=== PATIENT | female | born 1930 | race Caucasian/White ===

== ENCOUNTER 2018-04-04 14:58 | Inpatient (IN) | payer MEDICARE, MEDICAID ==
[~2018-04-04] VITALS: Ht 315 cm; Wt 50.8 kg
[~2018-04-04 14:58] MED LIST: AMLO10TA80 PO; ESOM20CA PO; LEVE500T19 PO; MEGE400O PO; MEMA10TA2 PO; METO25TA6 PO; NEPVIT PO; OYSCO; ROSU40TA PO
[2018-04-04 21:27] LABS: HEMATOCRIT. 29.3 % (36.0-48.0); HEMOGLOBIN. 9.6 g/dL (12.0-16.0); MEAN CORPUSCULAR HEMOGLOBIN 30.7 pg (28.0-32.0); MEAN CORPUSCULAR VOLUME 94.2 fL (81.0-99.0); MEAN PLATELET VOLUME 6.1 fl (7.4-10.4); PLATELET 495 x1000/uL (130-400); RED BLOOD CELL COUNT 3.11 mill/uL (4.2-5.4); RED CELL DISTRIBUTION WIDTH 16.4 % (11.6-14.6)
[2018-04-04 21:33] LABS: CHLORIDE 109 mEq/L (98-107)
[2018-04-04 21:42] LABS: PLATELET ESTIMATE INCREASED
[2018-04-04 22:55] LABS: CLARITY URINE CLOUDY (CLEAR); COLOR URINE YELLOW (YELLOW); KETONES URINE TRACE (NEGATIVE); LEUKOCYTE ESTERASE URINE 2+ (NEGATIVE); NITRITE URINE NEGATIVE (NEGATIVE); OCCULT BLOOD URINE 2+ (NEGATIVE); PH URINE 5.5 (4.5-8.0); PROTEIN URINE 3+ (NEGATIVE); SPECIFIC GRAVITY URINE 1.018 (1.005-1.030)
[2018-04-04] MEDS ORDERED: CEFTRIAXONE 1 G PREMIX 50 ML IV ONE (23:30)
[2018-04-04] MEDS ORDERED: ASPIRIN 81MG TABLET PO ONE (23:30)
[2018-04-05] MEDS ORDERED: MAGNESIUM/ALUMINUM HYDROXIDE/SIMETHICONE 30ML UDC PO PRN (00:30)
[2018-04-05] MEDS ORDERED: HYDROCODONE/ACETAMINOPHEN 5/325MG TABLET PO PRN (00:30)
[2018-04-05] MEDS ORDERED: GUAIFENESIN 200MG/10ML SUGAR FREE UDC PO PRN (00:30)
[2018-04-05] MEDS ORDERED: ACETAMINOPHEN 325MG TABLET PO PRN (00:30)
[2018-04-05] MEDS ORDERED: DOCUSATE SODIUM 100MG CAPSULE PO PRN (00:30)
[2018-04-05] MEDS ORDERED: CLONIDINE 0.1MG TABLET PO PRN (00:30)
[2018-04-05] MEDS ORDERED: ONDANSETRON HCL 4MG/2ML INJ IV PRN (00:30)
[2018-04-05] MEDS ORDERED: LEVOFLOXACIN 500MG PREMIX 100 ML IV NR (00:45)
[2018-04-05] MEDS: DEXT 5%/0.45% NACL 1000ML 1,000 ML IV SCH (02:05)
[2018-04-05 06:33] LABS: CREATINE KINASE 50 IU/L (26-192)
[2018-04-05 06:34] LABS: CREATINE KINASE MB FRACTION 1.1 ng/mL (0.5-3.6)
[2018-04-05 09:00] VITALS: BP 169/64
[2018-04-05 10:00] VITALS: BP 169/64
[2018-04-05] MEDS ORDERED: CITA10SO PO (11:54)
[2018-04-05 12:04] VITALS: BP 152/49
[2018-04-05] MEDS: ENOXAPARIN 30MG/0.3ML SYR SUBCUT SCH (14:21)
[2018-04-05] MEDS: AMLODIPINE 10MG TABLET PO SCH (14:22)
[2018-04-05] MEDS: MEMANTINE HCL 10MG TABLET PO SCH (14:22)
[2018-04-05 15:02] LABS: CREATINE KINASE MB FRACTION 1.6 ng/mL (0.5-3.6)
[2018-04-05 16:10] VITALS: BP 140/43
[2018-04-05 20:00] VITALS: BP 108/38
[2018-04-05] MEDS ORDERED: LEVOFLOXACIN 250MG PREMIX 50 ML IV SCH (21:00)
[2018-04-06 00:08] VITALS: BP 114/46
[2018-04-06] MEDS: DEXT 5%/0.45% NACL 1000ML 1,000 ML IV SCH ×2 (03:53→21:40)
[2018-04-06 06:16] LABS: HEMATOCRIT. 29.7 % (36.0-48.0); HEMOGLOBIN. 9.7 g/dL (12.0-16.0); MEAN CORPUSCULAR HEMOGLOBIN 30.4 pg (28.0-32.0); MEAN CORPUSCULAR VOLUME 93.5 fL (81.0-99.0); MEAN PLATELET VOLUME 6.4 fl (7.4-10.4); PLATELET 509 x1000/uL (130-400); RED BLOOD CELL COUNT 3.18 mill/uL (4.2-5.4); RED CELL DISTRIBUTION WIDTH 16.4 % (11.6-14.6)
[2018-04-06 06:46] LABS: CHLORIDE 110 mEq/L (98-107)
[2018-04-06 06:56] LABS: LDL CHOLESTEROL 68 mg/dL (5-100)
[2018-04-06 06:58] LABS: HDL CHOLESTEROL 43 mg/dL (40-59)
[2018-04-06 08:00] VITALS: BP 111/47
[2018-04-06] MEDS: MEMANTINE HCL 10MG TABLET PO SCH (08:45)
[2018-04-06] MEDS: AMLODIPINE 10MG TABLET PO SCH (08:48)
[2018-04-06 10:36] LABS: PLATELET ESTIMATE INCREASED
[2018-04-06 12:00] VITALS: BP 111/46
[2018-04-06] MEDS: ENOXAPARIN 30MG/0.3ML SYR SUBCUT SCH (13:00)
[2018-04-06 16:00] VITALS: BP 114/45
[2018-04-06 20:00] VITALS: BP 101/47
[2018-04-06] MEDS ORDERED: LEVOFLOXACIN 250MG PREMIX 50 ML IV SCH (21:00)
[2018-04-06] MEDS ORDERED: QUETIAPINE FUMARATE 25MG TABLET PO SCH (21:00)
[2018-04-07] VITALS: BP 99/51
[2018-04-07] MEDS: DEXT 5%/0.45% NACL 1000ML 1,000 ML IV SCH (05:42)
[2018-04-07 06:28] VITALS: BP 112/46
[2018-04-07 08:00] VITALS: BP 115/46
[2018-04-07 08:03] LABS: BASOPHILS % 0.5 % (0.0-2.0); EOSINOPHILS % 0.9 % (0.0-5.0); HEMATOCRIT. 25.1 % (36.0-48.0); HEMOGLOBIN. 8.2 g/dL (12.0-16.0); LYMPHOCYTES % 10.2 % (20.0-50.0); MEAN CORPUSCULAR HEMOGLOBIN 30.3 pg (28.0-32.0); MEAN CORPUSCULAR VOLUME 92.6 fL (81.0-99.0); MEAN PLATELET VOLUME 6.2 fl (7.4-10.4); MONOCYTES % 6.3 % (2.0-8.0); NEUTROPHILS % 82.1 % (40.0-76.0); PLATELET 437 x1000/uL (130-400); RED BLOOD CELL COUNT 2.71 mill/uL (4.2-5.4); RED CELL DISTRIBUTION WIDTH 16.6 % (11.6-14.6)
[2018-04-07 08:19] LABS: CHLORIDE 109 mEq/L (98-107)
[2018-04-07] MEDS: MEMANTINE HCL 10MG TABLET PO SCH (09:00)
[2018-04-07] MEDS: AMLODIPINE 10MG TABLET PO SCH (10:16)
[2018-04-07] MEDS: ENOXAPARIN 30MG/0.3ML SYR SUBCUT SCH (10:22)
[2018-04-07 12:15] VITALS: BP 112/42
[2018-04-07 16:22] VITALS: BP 115/41
[2018-04-07 17:19] VITALS: BP 115/46
== END 2018-04-07 17:15 | disposition home health service (06) | DRG 470 ==
LOC: ER 14:58 → 6WST 23:52 → CANRESERV 04-05 07:06 → ENRESERV 04-05 07:06
PROVIDERS: ADMIT Hospitalist; ATTEND Hospitalist
DX: I12.9 Hypertensive chronic kidney disease with stage 1 through stage 4 chronic kidney disease, or unspecified chronic kidney disease (principal); E43 Unspecified severe protein-calorie malnutrition; F03.90 Unspecified dementia, unspecified severity, without behavioral disturbance, psychotic disturbance, mood disturbance, and anxiety; E87.8 Other disorders of electrolyte and fluid balance, not elsewhere classified; N39.0 Urinary tract infection, site not specified; E83.51 Hypocalcemia; N18.9 Chronic kidney disease, unspecified; Z96.649 Presence of unspecified artificial hip joint; Z99.2 Dependence on renal dialysis; Z68.29 Body mass index [BMI] 29.0-29.9, adult
CPT/HCPCS: 36415; 71045; 80061; 82550; 82553; 84484; 93005; 93970; 96365; 97162; 99285; J0696; J1650; J1956

== ENCOUNTER 2019-04-13 02:53 | Inpatient (IN) | payer MEDICARE, MEDICAID ==
[2019-04-13] VITALS (45 sets, daily range): BP systolic 77–246; BP diastolic 34–131
[~2019-04-13] VITALS: Ht 165.1 cm; Wt 57.6 kg
[~2019-04-13 02:53] MED LIST changes: +CITA10SO PO; -LEVE500T19 PO; -ROSU40TA PO
[2019-04-13] MEDS ORDERED: SODIUM CHLORIDE 0.9% 1,000 ML IV ONE ×3 (03:37→05:34)
[2019-04-13] MEDS ORDERED: ONDANSETRON HCL 4MG/2ML INJ IV STA (03:37)
[2019-04-13] MEDS ORDERED: MORPHINE SULFATE 4 MG/ML CPJ (NOT FOR IM USE) IV STA (03:37)
[2019-04-13 04:06] LABS: BASOPHILS % 0.4 % (0.0-2.0); EOSINOPHILS % 0.5 % (0.0-5.0); HEMATOCRIT. 31.2 % (36.0-48.0); LYMPHOCYTES % 11.9 % (20.0-50.0); MEAN CORPUSCULAR HEMOGLOBIN 20.8 pg (28.0-32.0); MEAN CORPUSCULAR VOLUME 72.1 fL (81.0-99.0); MEAN PLATELET VOLUME 7.4 fl (7.4-10.4); MONOCYTES % 2.1 % (2.0-8.0); NEUTROPHILS % 85.1 % (40.0-76.0); PLATELET 245 x1000/uL (130-400); RED BLOOD CELL COUNT 4.33 mill/uL (4.2-5.4)
[2019-04-13 04:08] LABS: CHLORIDE 119 mEq/L (98-107)
[2019-04-13 04:12] LABS: INR 2.1
[2019-04-13] MEDS ORDERED: METRONIDAZOLE 500 MG PREMIX 100 ML IV ONE (05:15)
[2019-04-13] MEDS ORDERED: CEFTRIAXONE 1 G PREMIX 50 ML IV ONE (05:15)
[2019-04-13 05:20] LABS: PLATELET ESTIMATE NORMAL
[2019-04-13] MEDS ORDERED: BACITRACIN 50,000 UNITS/VIAL ONE (06:51)
[2019-04-13] MEDS ORDERED: BUPIVACAINE HCL 0.5% (5MG/ML) 50ML ONE ×2 (06:51→08:18)
[2019-04-13] MEDS ORDERED: ROCURONIUM BROMIDE 10MG/ML VIAL 5ML IV ONE (07:14)
[2019-04-13] MEDS ORDERED: FENTANYL CITRATE/PF 50MCG/ML 2ML VIAL ONE (07:14)
[2019-04-13] MEDS ORDERED: PROPOFOL 200MG/20ML VIAL IV ONE (07:14)
[2019-04-13] MEDS ORDERED: NEOSTIGMINE METHYLSULFATE 1MG/ML 10 ML VIAL ONE (07:14)
[2019-04-13] MEDS ORDERED: MIDAZOLAM HCL 2 MG/2 ML VIAL ONE (07:15)
[2019-04-13] MEDS ORDERED: GLYCOPYRROLATE 0.2 MG/ML 2ML VIAL ONE ×2 (07:15→08:26)
[2019-04-13] MEDS ORDERED: ONDANSETRON HCL 4MG/2ML INJ ONE (07:17)
[2019-04-13] MEDS ORDERED: DEXAMETHASONE 4MG/ML 1ML VIAL ONE (07:17)
[2019-04-13] MEDS ORDERED: MORPHINE SULFATE 4 MG/ML CPJ (NOT FOR IM USE) IV PRN (07:45)
[2019-04-13] MEDS ORDERED: ONDANSETRON HCL 4MG/2ML INJ IV PRN ×2 (07:45→08:30)
[2019-04-13] MEDS ORDERED: MORPHINE SULFATE 2 MG/ML CPJ (NOT FOR IM USE) IV PRN (07:45)
[2019-04-13] MEDS: IPRATROPIUM/ALBUTEROL 0.5-3(2.5)MG/3ML NEB HHN SCH ×4 (08:30→20:29)
[2019-04-13] MEDS ORDERED: IPRATROPIUM/ALBUTEROL 0.5-3(2.5)MG/3ML NEB NEB PRN (08:30)
[2019-04-13] MEDS ORDERED: DIPHENHYDRAMINE 50MG/ML VIAL IV PRN (08:30)
[2019-04-13] MEDS ORDERED: BUPIVACAINE HCL 0.5% 125 ML in ON-Q PM012 DRUG DELIV DEVICE 1 EA IR SCH (08:30)
[2019-04-13] MEDS ORDERED: ACETAMINOPHEN 650MG SUPP PR PRN (08:30)
[2019-04-13 08:34] LABS: BASOPHILS % 0.2 % (0.0-2.0); HEMATOCRIT. 30.6 % (36.0-48.0); HEMOGLOBIN. 9.3 g/dL (12.0-16.0); LYMPHOCYTES % 11.7 % (20.0-50.0); MEAN CORPUSCULAR HEMOGLOBIN 22.7 pg (28.0-32.0); MEAN CORPUSCULAR VOLUME 74.7 fL (81.0-99.0); MEAN PLATELET VOLUME 7.3 fl (7.4-10.4); MONOCYTES % 3.7 % (2.0-8.0); NEUTROPHILS % 84.4 % (40.0-76.0); PLATELET 232 x1000/uL (130-400); RED BLOOD CELL COUNT 4.09 mill/uL (4.2-5.4); RED CELL DISTRIBUTION WIDTH 26.6 % (11.6-14.6)
[2019-04-13 08:48] LABS: INR 1.7; PROTHROMBIN TIME 18.3 sec (9.6-11.0)
[2019-04-13] MEDS ORDERED: BUPIVACAINE HCL 0.5% 290 ML in ON-Q PM015 DRUG DELIV DEVICE 1 EA IR SCH (09:00)
[2019-04-13] MEDS ORDERED: FAMOTIDINE 20MG/2ML VIAL IV SCH (09:00)
[2019-04-13 09:47] LABS: BG BASE EXCESS -17.3 mmol/L (-2.0-2.0); BG CARBOXYHEMOGLOBIN 0.4 % (0.5-1.5); BG DEOXYHEMOGLOBIN 1.4 % (0.0-5.0); BG FRACTION INSPIRED OXYGEN 50; BG HCO3 ACT 10.8 mmol/L (22.0-26.0); BG METHEMOGLOBIN 0.4 % (0.0-1.5); BG OXYGEN SATURATION 98.6 % (92.0-98.5); BG OXYHEMOGLOBIN 97.8 % (94.0-97.0); BG PH 7.119 (7.350-7.450); BG PO2 170.4 mmHg (75.0-100.0); BG PRESSURE SUPPORT 10; BG SAMPLE SITE RIGHT RADIAL; BG TIDAL VOLUME(mL) 500 mL; BG VENT MODE VENT - SIMV; BG VENT RATE 8 set
[2019-04-13] MEDS ORDERED: LORAZEPAM 2MG/ML CPJ IV PRN (10:00)
[2019-04-13] MEDS ORDERED: SODIUM BICARBONATE 8.4% 1 MEQ/ML 50ML SYR IV SCH (10:00)
[2019-04-13] MEDS ORDERED: LIDOCAINE HCL 1% 20ML VIAL (Pyxis) INJ ONE (10:25)
[2019-04-13] MEDS: DEXT 5%/0.45% NACL KCL 20MEQ/L 1,000 ML IV SCH ×2 (11:03→20:32)
[2019-04-13] MEDS: FENTANYL CITRATE/PF 500 MCG in SODIUM CHLORIDE 0.9% 40 ML IV PRN (12:15)
[2019-04-13 13:18] LABS: BG BASE EXCESS -9.6 mmol/L (-2.0-2.0); BG CARBOXYHEMOGLOBIN 0.3 % (0.5-1.5); BG DEOXYHEMOGLOBIN 1.7 % (0.0-5.0); BG FRACTION INSPIRED OXYGEN 40; BG OXYGEN SATURATION 98.3 % (92.0-98.5); BG PCO2 28.3 mmHg (35.0-45.0); BG PH 7.341 (7.350-7.450); BG PO2 137.4 mmHg (75.0-100.0); BG SAMPLE SITE A-LINE; BG TIDAL VOLUME(mL) 500 mL; BG TOTAL HEMOGLOBIN 10.3 g/dL (12.0-18.0); BG VENT MODE VENT - A/C; BG VENT RATE 16 set
[2019-04-13] MEDS: CEFAZOLIN 1000MG PREMIX 50 ML IV SCH ×2 (15:29→20:51)
[2019-04-13] MEDS: METRONIDAZOLE 500 MG PREMIX 100 ML IV SCH ×2 (15:29→21:12)
[2019-04-13] MEDS ORDERED: INFLUENZA VIRUS VACCINE(AFLURIA) 0.5ML SYR IM ONE (19:45)
[2019-04-13] MEDS: NOREPINEPHRINE 8 MG in DEXT 5% WATER 242 ML IV PRN (20:50)
[2019-04-14] VITALS (77 sets, daily range): BP systolic 69–165; BP diastolic 23–124
[2019-04-14 00:20] LABS: CLARITY URINE CLOUDY (CLEAR); COLOR URINE DARK YELLOW (YELLOW); KETONES URINE NEGATIVE (NEGATIVE); LEUKOCYTE ESTERASE URINE 1+ (NEGATIVE); NITRITE URINE NEGATIVE (NEGATIVE); OCCULT BLOOD URINE 2+ (NEGATIVE); PROTEIN URINE 2+ (NEGATIVE); UROBILINOGEN URINE 0.2 E.U./dL (0.2-1.0)
[2019-04-14] MEDS: IPRATROPIUM/ALBUTEROL 0.5-3(2.5)MG/3ML NEB HHN SCH ×7 (00:48→23:36)
[2019-04-14] MEDS: METRONIDAZOLE 500 MG PREMIX 100 ML IV SCH ×3 (05:58→21:39)
[2019-04-14] MEDS: CEFAZOLIN 1000MG PREMIX 50 ML IV SCH ×3 (05:58→23:55)
[2019-04-14] MEDS: DEXT 5%/0.45% NACL KCL 20MEQ/L 1,000 ML IV SCH (08:25)
[2019-04-14 09:26] LABS: CHLORIDE 121 mEq/L (98-107)
[2019-04-14 09:30] LABS: HEMATOCRIT. 33.7 % (36.0-48.0); HEMOGLOBIN. 9.9 g/dL (12.0-16.0); MEAN CORPUSCULAR HEMOGLOBIN 22.4 pg (28.0-32.0); MEAN CORPUSCULAR VOLUME 76.2 fL (81.0-99.0); MEAN PLATELET VOLUME 8.4 fl (7.4-10.4); PLATELET 228 x1000/uL (130-400); RED BLOOD CELL COUNT 4.42 mill/uL (4.2-5.4); RED CELL DISTRIBUTION WIDTH 26.1 % (11.6-14.6)
[2019-04-14 09:33] LABS: PHOSPHORUS 3.8 mg/dL (2.5-4.9)
[2019-04-14 10:22] LABS: PLATELET ESTIMATE NORMAL
[2019-04-14] MEDS ORDERED: IOHEXOL-300 100 ML BOTTLE ONE (10:49)
[2019-04-14] MEDS ORDERED: SODIUM BICARBONATE 4% (2.4MEQ) 5ML VIAL IV ONE (10:49)
[2019-04-14] MEDS ORDERED: LIDOCAINE HCL 1% 20ML VIAL (Pyxis) INJ ONE (10:49)
[2019-04-14] MEDS ORDERED: MAGNESIUM 4 G PREMIX 100 ML IV SCH (11:00)
[2019-04-14] MEDS: FENTANYL CITRATE/PF 500 MCG in SODIUM CHLORIDE 0.9% 40 ML IV PRN (12:32)
[2019-04-14] MEDS ORDERED: CALCIUM GLUCONATE 100MG/ML 10ML VIAL IV NR (13:00)
[2019-04-14] MEDS: SODIUM BICARBONATE 50 MEQ in DEXTROSE 5% WATER 1,000 ML IV SCH (14:16)
[2019-04-14 15:29] LABS: BG BASE EXCESS -13.3 mmol/L (-2.0-2.0); BG CARBOXYHEMOGLOBIN 0.1 % (0.5-1.5); BG DEOXYHEMOGLOBIN 3.5 % (0.0-5.0); BG FRACTION INSPIRED OXYGEN 40; BG HCO3 ACT 12.4 mmol/L (22.0-26.0); BG METHEMOGLOBIN 0.2 % (0.0-1.5); BG OXYGEN SATURATION 96.5 % (92.0-98.5); BG OXYHEMOGLOBIN 96.2 % (94.0-97.0); BG PCO2 28.1 mmHg (35.0-45.0); BG PH 7.261 (7.350-7.450); BG PRESSURE SUPPORT 8; BG SAMPLE SITE A-LINE; BG TOTAL HEMOGLOBIN 10.2 g/dL (12.0-18.0); BG VENT MODE VENT - CPAP
[2019-04-14] MEDS: PANTOPRAZOLE SODIUM 40 MG/VIAL IV SCH (16:03)
[2019-04-14] MEDS ORDERED: LORAZEPAM 2MG/ML CPJ IV PRN (16:15)
[2019-04-14] MEDS ORDERED: SODIUM CHLORIDE 0.9% 500 ML IV ONE (19:00)
[2019-04-15] VITALS (91 sets, daily range): BP systolic 77–151; BP diastolic 29–63
[2019-04-15] MEDS: SODIUM BICARBONATE 50 MEQ in DEXTROSE 5% WATER 1,000 ML IV SCH ×2 (00:29→11:56)
[2019-04-15] MEDS: IPRATROPIUM/ALBUTEROL 0.5-3(2.5)MG/3ML NEB HHN SCH ×6 (03:55→23:27)
[2019-04-15] MEDS: FENTANYL CITRATE/PF 500 MCG in SODIUM CHLORIDE 0.9% 40 ML IV PRN ×2 (03:59→19:47)
[2019-04-15] MEDS: CEFAZOLIN 1000MG PREMIX 50 ML IV SCH ×2 (05:31→18:05)
[2019-04-15] MEDS: METRONIDAZOLE 500 MG PREMIX 100 ML IV SCH ×3 (05:31→22:21)
[2019-04-15 05:40] LABS: HEMATOCRIT. 24.3 % (36.0-48.0); HEMOGLOBIN. 7.3 g/dL (12.0-16.0); MEAN CORPUSCULAR HEMOGLOBIN 22.3 pg (28.0-32.0); MEAN CORPUSCULAR VOLUME 74.2 fL (81.0-99.0); MEAN PLATELET VOLUME 8.3 fl (7.4-10.4); PLATELET 107 x1000/uL (130-400); RED BLOOD CELL COUNT 3.27 mill/uL (4.2-5.4); RED CELL DISTRIBUTION WIDTH 25.8 % (11.6-14.6)
[2019-04-15 05:58] LABS: CHLORIDE 122 mEq/L (98-107)
[2019-04-15 06:08] LABS: CREATINE KINASE 489 IU/L (26-192)
[2019-04-15] MEDS: NOREPINEPHRINE 8 MG in DEXT 5% WATER 242 ML IV PRN (06:30)
[2019-04-15 08:57] LABS: PLATELET ESTIMATE DECREASED
[2019-04-15] MEDS: PANTOPRAZOLE SODIUM 40 MG/VIAL IV SCH (09:11)
[2019-04-15] MEDS ORDERED: MAGNESIUM 1 G PREMIX 100 ML IV NR (09:45)
[2019-04-15] MEDS ORDERED: KCL 20MEQ/100ML PREMIX 100 ML IV NR (10:30)
[2019-04-15 11:03] LABS: HEMATOCRIT 26.1 % (36.0-48.0)
[2019-04-15 18:26] LABS: HEMATOCRIT 29.7 % (36.0-48.0); HEMOGLOBIN 9.1 g/dL (12.0-16.0)
[2019-04-15] MEDS: SODIUM BICARBONATE 150 MEQ in DEXTROSE 5% WATER 1,000 ML IV SCH (21:43)
[2019-04-15] MEDS: CALCIUM GLUCONATE 100MG/ML 10ML VIAL IV SCH (22:14)
[2019-04-16] VITALS (99 sets, daily range): BP systolic 88–172; BP diastolic 25–87
[2019-04-16 01:17] LABS: HEMATOCRIT 25.4 % (36.0-48.0); HEMOGLOBIN 7.7 g/dL (12.0-16.0)
[2019-04-16] MEDS: IPRATROPIUM/ALBUTEROL 0.5-3(2.5)MG/3ML NEB HHN SCH ×5 (03:50→20:06)
[2019-04-16] MEDS: METRONIDAZOLE 500 MG PREMIX 100 ML IV SCH ×3 (05:56→23:27)
[2019-04-16] MEDS: CEFAZOLIN 1000MG PREMIX 50 ML IV SCH ×2 (05:56→17:34)
[2019-04-16] MEDS: CALCIUM GLUCONATE 100MG/ML 10ML VIAL IV SCH ×3 (05:58→23:42)
[2019-04-16 06:05] LABS: CHLORIDE 116 mEq/L (98-107)
[2019-04-16 06:16] LABS: PHOSPHORUS 3.2 mg/dL (2.5-4.9)
[2019-04-16 06:38] LABS: MEAN CORPUSCULAR HEMOGLOBIN 22.5 pg (28.0-32.0); MEAN CORPUSCULAR VOLUME 73.3 fL (81.0-99.0); MEAN PLATELET VOLUME 8.7 fl (7.4-10.4); PLATELET 82 x1000/uL (130-400); RED BLOOD CELL COUNT 3.54 mill/uL (4.2-5.4); RED CELL DISTRIBUTION WIDTH 26.4 % (11.6-14.6)
[2019-04-16 07:24] LABS: BG BASE EXCESS -8.9 mmol/L (-2.0-2.0); BG CARBOXYHEMOGLOBIN 0.5 % (0.5-1.5); BG DEOXYHEMOGLOBIN 4.9 % (0.0-5.0); BG HCO3 ACT 16.3 mmol/L (22.0-26.0); BG METHEMOGLOBIN 0.2 % (0.0-1.5); BG OXYGEN SATURATION 95.1 % (92.0-98.5); BG OXYHEMOGLOBIN 94.4 % (94.0-97.0); BG PCO2 32.8 mmHg (35.0-45.0); BG PH 7.315 (7.350-7.450); BG PO2 81.8 mmHg (75.0-100.0); BG SAMPLE SITE A-LINE; BG TIDAL VOLUME(mL) 500 mL; BG TOTAL HEMOGLOBIN 9.4 g/dL (12.0-18.0); BG VENT MODE VENT - A/C; BG VENT RATE 16 set
[2019-04-16 09:05] LABS: PLATELET ESTIMATE DECREASED
[2019-04-16] MEDS: PANTOPRAZOLE SODIUM 40 MG/VIAL IV SCH (09:28)
[2019-04-16 13:07] LABS: HEMATOCRIT 30.4 % (36.0-48.0); HEMOGLOBIN 9.2 g/dL (12.0-16.0)
[2019-04-16] MEDS: FENTANYL CITRATE/PF 500 MCG in SODIUM CHLORIDE 0.9% 40 ML IV PRN (13:38)
[2019-04-16] MEDS: SODIUM BICARBONATE 150 MEQ in DEXTROSE 5% WATER 1,000 ML IV SCH (14:34)
[2019-04-16 17:46] LABS: BG BASE EXCESS -7.4 mmol/L (-2.0-2.0); BG CARBOXYHEMOGLOBIN 0.3 % (0.5-1.5); BG CPAP (cmH2O) 0 cm(H2O); BG DEOXYHEMOGLOBIN 6.7 % (0.0-5.0); BG METHEMOGLOBIN 0.6 % (0.0-1.5); BG OXYGEN SATURATION 93.2 % (92.0-98.5); BG OXYHEMOGLOBIN 92.4 % (94.0-97.0); BG PCO2 30.8 mmHg (35.0-45.0); BG PH 7.361 (7.350-7.450); BG PO2 74.9 mmHg (75.0-100.0); BG SAMPLE SITE A-LINE; BG VENT MODE VENT - CPAP
[2019-04-16] MEDS: NOREPINEPHRINE 8 MG in DEXT 5% WATER 242 ML IV PRN (23:23)
[2019-04-17] VITALS (136 sets, daily range): BP systolic 40–166; BP diastolic 14–119
[2019-04-17] MEDS: IPRATROPIUM/ALBUTEROL 0.5-3(2.5)MG/3ML NEB HHN SCH ×6 (00:05→20:15)
[2019-04-17] MEDS: SODIUM BICARBONATE 150 MEQ in DEXTROSE 5% WATER 1,000 ML IV SCH (04:19)
[2019-04-17] MEDS: CALCIUM GLUCONATE 100MG/ML 10ML VIAL IV SCH ×3 (05:52→21:27)
[2019-04-17] MEDS: METRONIDAZOLE 500 MG PREMIX 100 ML IV SCH ×3 (05:53→21:26)
[2019-04-17 05:55] LABS: HEMATOCRIT. 28.7 % (36.0-48.0); HEMOGLOBIN. 9.2 g/dL (12.0-16.0); MEAN CORPUSCULAR VOLUME 72.2 fL (81.0-99.0); MEAN PLATELET VOLUME 9.6 fl (7.4-10.4); PLATELET 51 x1000/uL (130-400); RED BLOOD CELL COUNT 3.98 mill/uL (4.2-5.4); RED CELL DISTRIBUTION WIDTH 26.7 % (11.6-14.6)
[2019-04-17] MEDS: FENTANYL CITRATE/PF 500 MCG in SODIUM CHLORIDE 0.9% 40 ML IV PRN ×2 (05:56→21:06)
[2019-04-17] MEDS: CEFAZOLIN 1000MG PREMIX 50 ML IV SCH ×2 (06:19→17:48)
[2019-04-17] MEDS: PANTOPRAZOLE SODIUM 40 MG/VIAL IV SCH (08:12)
[2019-04-17 08:14] LABS: PLATELET ESTIMATE DECREASED
[2019-04-17 08:23] LABS: BG BASE EXCESS -5.9 mmol/L (-2.0-2.0); BG CARBOXYHEMOGLOBIN 0.2 % (0.5-1.5); BG DEOXYHEMOGLOBIN 8.4 % (0.0-5.0); BG FRACTION INSPIRED OXYGEN 40; BG HCO3 ACT 18.4 mmol/L (22.0-26.0); BG METHEMOGLOBIN 0.9 % (0.0-1.5); BG OXYGEN SATURATION 91.5 % (92.0-98.5); BG OXYHEMOGLOBIN 90.5 % (94.0-97.0); BG PCO2 31.3 mmHg (35.0-45.0); BG PH 7.386 (7.350-7.450); BG PRESSURE SUPPORT 12; BG SAMPLE SITE A-LINE; BG TIDAL VOLUME(mL) 200 mL; BG TOTAL HEMOGLOBIN 9.3 g/dL (12.0-18.0); BG VENT MODE VENT - SIMV; BG VENT RATE 10 set
[2019-04-17] MEDS: NOREPINEPHRINE 32 MG in DEXT 5% WATER 468 ML IV PRN (11:01)
[2019-04-17] MEDS: SODIUM BICARBONATE 50 MEQ in DEXT 5%/0.45% NACL 1000ML 1,000 ML IV SCH (18:38)
[2019-04-17] MEDS ORDERED: SODIUM CHLORIDE 0.9% 1,000 ML IV NR (22:30)
[2019-04-18] VITALS (139 sets, daily range): BP systolic 38–236; BP diastolic 20–103
[2019-04-18] MEDS: IPRATROPIUM/ALBUTEROL 0.5-3(2.5)MG/3ML NEB HHN SCH ×6 (00:15→20:35)
[2019-04-18] MEDS: CALCIUM GLUCONATE 100MG/ML 10ML VIAL IV SCH (05:17)
[2019-04-18 05:53] LABS: PHOSPHORUS 3.7 mg/dL (2.5-4.9)
[2019-04-18] MEDS: METRONIDAZOLE 500 MG PREMIX 100 ML IV SCH ×3 (06:56→21:55)
[2019-04-18] MEDS: CEFAZOLIN 1000MG PREMIX 50 ML IV SCH (06:57)
[2019-04-18 07:49] LABS: BG BASE EXCESS -3.6 mmol/L (-2.0-2.0); BG CARBOXYHEMOGLOBIN 0.2 % (0.5-1.5); BG DEOXYHEMOGLOBIN 5.2 % (0.0-5.0); BG FRACTION INSPIRED OXYGEN 60; BG HCO3 ACT 20.2 mmol/L (22.0-26.0); BG METHEMOGLOBIN 0.4 % (0.0-1.5); BG OXYGEN SATURATION 94.8 % (92.0-98.5); BG OXYHEMOGLOBIN 94.2 % (94.0-97.0); BG PCO2 31.8 mmHg (35.0-45.0); BG PH 7.421 (7.350-7.450); BG PO2 77.9 mmHg (75.0-100.0); BG PRESSURE SUPPORT 12; BG SAMPLE SITE A-LINE; BG TIDAL VOLUME(mL) 500 mL; BG VENT MODE VENT - SIMV; BG VENT RATE 10 set
[2019-04-18] MEDS: SODIUM BICARBONATE 50 MEQ in DEXT 5%/0.45% NACL 1000ML 1,000 ML IV SCH (07:51)
[2019-04-18] MEDS: PANTOPRAZOLE SODIUM 40 MG/VIAL IV SCH (07:52)
[2019-04-18] MEDS: NOREPINEPHRINE 32 MG in DEXT 5% WATER 468 ML IV PRN (10:40)
[2019-04-18] MEDS: LORAZEPAM 2MG/ML CPJ IV PRN ×2 (10:59→14:53)
[2019-04-18] MEDS ORDERED: FENTANYL CITRATE/PF 500 MCG in SODIUM CHLORIDE 0.9% 40 ML IV PRN (11:00)
[2019-04-18] MEDS ORDERED: CEFEPIME 1,000 MG in DEXTROSE 5% WATER 50 ML IV SCH (12:00)
[2019-04-18] MEDS: CEFEPIME 1,000 MG in DEXTROSE 5% WATER 50 ML IV SCH (14:38)
[2019-04-19] VITALS (136 sets, daily range): BP systolic -2–240; BP diastolic -2–90
[2019-04-19] MEDS: IPRATROPIUM/ALBUTEROL 0.5-3(2.5)MG/3ML NEB HHN SCH ×6 (00:24→20:24)
[2019-04-19] MEDS: SODIUM BICARBONATE 50 MEQ in DEXT 5%/0.45% NACL 1000ML 1,000 ML IV SCH ×2 (03:13→21:37)
[2019-04-19] MEDS ORDERED: SODIUM BICARBONATE 50 MEQ in DEXT 5%/0.45% NACL 1000ML 1,000 ML IV SCH (04:51)
[2019-04-19] MEDS: VASOPRESSIN 10 UNIT in SODIUM CHLORIDE 0.9% 99.5 ML IV PRN ×3 (05:26→13:20)
[2019-04-19] MEDS: METRONIDAZOLE 500 MG PREMIX 100 ML IV SCH ×3 (06:30→21:43)
[2019-04-19] MEDS: NOREPINEPHRINE 32 MG in DEXT 5% WATER 468 ML IV PRN (06:38)
[2019-04-19 08:27] LABS: BG BASE EXCESS -5.6 mmol/L (-2.0-2.0); BG CARBOXYHEMOGLOBIN 1.3 % (0.5-1.5); BG DEOXYHEMOGLOBIN 6.4 % (0.0-5.0); BG FRACTION INSPIRED OXYGEN 80; BG HCO3 ACT 19.1 mmol/L (22.0-26.0); BG METHEMOGLOBIN 0.3 % (0.0-1.5); BG OXYGEN SATURATION 93.5 % (92.0-98.5); BG PCO2 33.8 mmHg (35.0-45.0); BG PO2 74.4 mmHg (75.0-100.0); BG SAMPLE SITE A-LINE; BG TIDAL VOLUME(mL) 500 mL; BG TOTAL HEMOGLOBIN 6.4 g/dL (12.0-18.0); BG VENT MODE VENT - A/C; BG VENT RATE 16 set
[2019-04-19] MEDS: PANTOPRAZOLE SODIUM 40 MG/VIAL IV SCH (08:29)
[2019-04-19] MEDS ORDERED: CALCIUM GLUCONATE 100MG/ML 10ML VIAL IV SCH (09:00)
[2019-04-19] MEDS: CEFEPIME 1,000 MG in DEXTROSE 5% WATER 50 ML IV SCH (15:22)
[2019-04-19] MEDS: PHENYLEPHRINE 20 MG in DEXT 5% WATER 248 ML IV PRN ×2 (18:35→22:06)
[2019-04-20] VITALS (25 sets, daily range): BP systolic 106–155; BP diastolic 21–42
[2019-04-20] MEDS: VASOPRESSIN 10 UNIT in SODIUM CHLORIDE 0.9% 99.5 ML IV PRN (00:17)
[2019-04-20] MEDS: NOREPINEPHRINE 32 MG in DEXT 5% WATER 468 ML IV PRN (01:17)
[2019-04-20] MEDS: IPRATROPIUM/ALBUTEROL 0.5-3(2.5)MG/3ML NEB HHN SCH (01:19)
[2019-04-20] MEDS ORDERED: PHENYLEPHRINE 20 MG in DEXT 5% WATER 498 ML IV PRN (01:30)
[2019-04-20] MEDS ORDERED: PHENYLEPHRINE 40 MG in DEXT 5% WATER 496 ML IV PRN (02:00)
== END 2019-04-20 03:28 | disposition expired | DRG 710 ==
LOC: ER 02:53 → EDBEDREQ 05:32 → EDBEDREQTM 05:32 → EDBEDREQSVC 05:40 → EDBEDREQTM 05:40 → MICUSO 05:42 → ENRESERV 07:43
PROVIDERS: ADMIT Internal Medicine; ATTEND Internal Medicine
PROC: 0DTF0ZZ Resection of Right Large Intestine, Open Approach (ICD-10-PCS; principal; 2019-04-13)
PROC: 5A1955Z Respiratory Ventilation, Greater than 96 Consecutive Hours (ICD-10-PCS; 2019-04-13)
PROC: 0BH17EZ Insertion of Endotracheal Airway into Trachea, Via Natural or Artificial Opening (ICD-10-PCS; 2019-04-13)
PROC: 30233K1 Transfusion of Nonautologous Frozen Plasma into Peripheral Vein, Percutaneous Approach (ICD-10-PCS; 2019-04-13)
PROC: 30233N1 Transfusion of Nonautologous Red Blood Cells into Peripheral Vein, Percutaneous Approach (ICD-10-PCS; 2019-04-13)
PROC: 02H633Z Insertion of Infusion Device into Right Atrium, Percutaneous Approach (ICD-10-PCS; 2019-04-13)
PROC: B548ZZA Ultrasonography of Superior Vena Cava, Guidance (ICD-10-PCS; 2019-04-13)
PROC: 06H03DZ Insertion of Intraluminal Device into Inferior Vena Cava, Percutaneous Approach (ICD-10-PCS; 2019-04-14)
PROC: B549ZZA Ultrasonography of Inferior Vena Cava, Guidance (ICD-10-PCS; 2019-04-14)
PROC: B5191ZA Fluoroscopy of Inferior Vena Cava using Low Osmolar Contrast, Guidance (ICD-10-PCS; 2019-04-14)
DX: A41.9 Sepsis, unspecified organism (principal); J96.00 Acute respiratory failure, unspecified whether with hypoxia or hypercapnia; N17.0 Acute kidney failure with tubular necrosis; K63.1 Perforation of intestine (nontraumatic); E43 Unspecified severe protein-calorie malnutrition; R57.1 Hypovolemic shock; R65.21 Severe sepsis with septic shock; C78.7 Secondary malignant neoplasm of liver and intrahepatic bile duct; E83.42 Hypomagnesemia; N18.3 Chronic kidney disease, stage 3 (moderate); Z66 Do not resuscitate; K65.9 Peritonitis, unspecified; I82.412 Acute embolism and thrombosis of left femoral vein; D68.9 Coagulation defect, unspecified; I42.9 Cardiomyopathy, unspecified; C18.9 Malignant neoplasm of colon, unspecified; E87.1 Hypo-osmolality and hyponatremia; D64.9 Anemia, unspecified; E16.2 Hypoglycemia, unspecified; E78.00 Pure hypercholesterolemia, unspecified; E78.5 Hyperlipidemia, unspecified; E83.51 Hypocalcemia; E87.0 Hyperosmolality and hypernatremia; E87.2 Acidosis; K57.30 Diverticulosis of large intestine without perforation or abscess without bleeding; I50.33 Acute on chronic diastolic (congestive) heart failure; M62.50 Muscle wasting and atrophy, not elsewhere classified, unspecified site; E87.6 Hypokalemia; Z96.649 Presence of unspecified artificial hip joint; K21.9 Gastro-esophageal reflux disease without esophagitis; F03.90 Unspecified dementia, unspecified severity, without behavioral disturbance, psychotic disturbance, mood disturbance, and anxiety; I13.0 Hypertensive heart and chronic kidney disease with heart failure and stage 1 through stage 4 chronic kidney disease, or unspecified chronic kidney disease; Z51.5 Encounter for palliative care; Z82.49 Family history of ischemic heart disease and other diseases of the circulatory system; Z86.718 Personal history of other venous thrombosis and embolism; Z95.828 Presence of other vascular implants and grafts; Z68.21 Body mass index [BMI] 21.0-21.9, adult; Z79.899 Other long term (current) drug therapy
CPT/HCPCS: 31500; 36415; 36600; 37191; 71045; 74176; 76937; 80048; 80053; 81003; 82375; 82378; 82550; 82570; 82805; 83605; 83735; 84100; 84300; 84484; 85014; 85018; 85025; 86850; 86900; 86920; 86927; 87070; 87075; 87077; 87186; 88309; 88329; 93005; 93306; 93970; 94003; 94640; 99291; C1725; C1769; C1880; C9113; J0610; J0690; J0692; J0696; J1100; J1644; J2060; J2250; J2270; J2370; J2405; J2704; J2710; J3010; J3475; J3480; J3490; J7030; J7050; J7060; J7070; P9016; P9017; Q9967